=== PATIENT | female | born 1975 | race Caucasian/White ===

== ENCOUNTER 2016-09-12 11:21 | Emergency (ER) | payer MEDICAID ==
--- NOTE | 2016-09-12 11:33 | ER Document Report ---
ED Medical Screen (RME) - General Stated Complaint: BACK PAIN, RIB PAIN Time seen by provider: 11:29 Mode of Arrival: Ambulatory Information source: Patient Notes: 41-year-old female with a history of chronic low back pain due to generative disc disease ordinarily takes Percocet 10 mg 5 times a day. She took her last dose last night. She is here in the emergency room for pain medication. She recently moved here from [place] on the beginning of August. She is seeking a referral to a doctor to treat her chronic pain. She does have diarrhea this morning which she suspects is due to not having her pain medication. - Related Data Allergies/Adverse Reactions: No Known Allergies Allergy (Verified 09/12/16 11:29) Physical Exam - Vital signs Vitals: Temp Pulse Resp BP Pulse Ox 98.3 F 84 18 128/75 H 97 09/12/16 11:27 09/12/16 11:27 09/12/16 11:27 09/12/16 11:27 09/12/16 11:27 Course - Vital Signs Vital signs: Temp Pulse Resp BP Pulse Ox 98.3 F 84 18 128/75 H 97 09/12/16 11:27 09/12/16 11:27 09/12/16 11:27 09/12/16 11:27 09/12/16 11:27
[2016-09-12] MEDS ORDERED: OXYCODONE-ACETAMINOPHEN 5-325 MG TABLET PO ONE (12:22)
--- NOTE | 2016-09-12 12:24 | ER Document Report ---
HPI - HPI Patient complains to provider of: chronic back pain Onset: This morning Onset/Duration: Gradual Quality of pain: Sharp Pain Level: 3 Context: Patient reports chronic low back pain for several years. Patient states that she just recently moved to this area and has not gotten established with a local primary doctor. Patient states she chronically takes Percocet 10/325 daily for her chronic back pain. Patient reports that she ran out of her prescription yesterday of her medicine. Patient has had diarrhea today but is concerned that she is starting to withdraw from her pain medication. Patient states that she has been sleeping in a motel on an uncomfortable bed worsening her low back pain. Patient denies any urinary symptoms, weakness or numbness. Patient does report some pain that radiates to bilateral hip area. Patient denies any fever or IV drug use. Associated Symptoms: Diarrhea, Other - Low back pain Exacerbated by: Movement Relieved by: Denies Similar symptoms previously: Yes Recently seen / treated by doctor: No - ROS ROS below otherwise negative: Yes Systems Reviewed and Negative: Yes All other systems reviewed and negative - CONSTITUTIONAL Constitutional: DENIES: Fever, Chills - NEURO Neurology: DENIES: Headache, Weakness - GASTROINTESTINAL Gastrointestinal: REPORTS: Diarrhea. DENIES: Abdominal Pain - MUSCULOSKELETAL Musculoskeletal: REPORTS: Back Pain. DENIES: Extremity pain, Neck Pain - DERM Skin Color: Normal Skin Problems: None Past Medical History - General Information source: Patient Last Menstrual Period: hysterectomy - Social History Smoking Status: Unknown if Ever Smoked Chew tobacco use (# tins/day): No Frequency of alcohol use: None Drug Abuse: None Occupation: none Lives with: Family Family History: Reviewed & Not Pertinent Patient has suicidal ideation: No Patient has homicidal ideation: No - Medical History Medical History: Other - Sarcoidosis Renal/ Medical History: Denies: Hx Peritoneal Dialysis Musculoskeltal Medical History: Reports Hx Arthritis - Chronic low back pain Psychiatric Medical History: Reports: Hx Depression Past Surgical History: Reports: Hx Appendectomy, Hx Cholecystectomy, Hx Hysterectomy, Hx Orthopedic Surgery, Other - 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 HEAD: Atraumatic, normocephalic. EYES: sclera clear, anicteric, conjunctiva are normal. ENT: nares patent, Moist mucous membranes. NECK: Normal range of motion, supple no lymphadenopathy LUNGS: respirations unlabored HEART: Regular rate and rhythm without murmurs EXTREMITIES: Normal range of motion, no pitting or edema. No cyanosis. Gait normal, pt ambulates without difficulty BACK: Lower lumbar paraspinal tenderness, no deformities or step-offs. No CVA tenderness. NEUROLOGICAL: Cranial nerves grossly intact. Normal speech, normal gait. No saddle anesthesia. PSYCH: Normal mood, normal affect. SKIN: Warm, Dry, normal turgor, no rashes or lesions noted. - INFECTION CONTROL TRAVEL OUTSIDE OF THE [place] IN LAST 30 DAYS: No - RESPIRATORY O2 Sat by Pulse Oximetry: 97 Course - Re-evaluation Re-evalutation: 09/12/16 12:21 Explained to patient that emergency Department does not manage chronic painful conditions. Patient advised that a short course of pain medication will be given today but she is strongly encouraged to follow-up with a local primary doctor or her primary doctor in [place] for any continued refills of pain medications. Discussed worsening signs or symptoms that patient should return to [facility] [facility] for. Patient verbalized understanding and agrees with plan of care. - Vital Signs Vital signs: Temp Pulse Resp BP Pulse Ox 98.3 F 84 18 128/75 H 97 09/12/16 11:27 09/12/16 11:27 09/12/16 11:27 09/12/16 11:27 09/12/16 11:27 Discharge - Discharge Clinical Impression: Chronic back pain Qualifiers: Back pain location: low back pain Back pain laterality: unspecified Sciatica presence: unspecified whether sciatica present Qualified Code(s): M54.5 - Low back pain Condition: Stable Disposition: HOME, SELF-CARE Instructions: Low Back Pain ([facility]), Oral Narcotic Medication ([facility]), Ice Packs ( [facility]), Warm Packs ([facility]), Chronic Back Pain ([facility]) Additional Instructions: Return immediately for any new or worsening symptoms Followup with your primary care provider, call tomorrow to make a followup appointment Follow-up with a local primary doctor as well as pain management provider for further evaluation Prescriptions: Oxycodone HCl/Acetaminophen [Percocet 10-325 Mg Tablet] 1 each PO Q6 PRN #20 tablet PRN Reason: Referrals: [facility] [Provider Group] - Follow up as needed [facility] [Provider Group] - Follow up as needed [facility] [NO LOCAL MD] - Follow up as needed
[2016-09-12 13:05] VITALS: BP 128/78
== END 2016-09-12 13:04 | disposition home or self-care (01) ==
LOC: ER 11:21
DX: G89.29 Other chronic pain (principal); M54.5 Low back pain; R19.7 Diarrhea, unspecified; Z79.891 Long term (current) use of opiate analgesic
CPT/HCPCS: 99283